=== PATIENT | female | born 1995 | race Caucasian/White ===

== ENCOUNTER 2024-07-09 09:06 | Outpatient (CLI) | payer OTHER, SELFPAY ==
--- NOTE | ~2024-07-09 | CT_ITS ---
EXAMINATION: CT wrist LT wo con DATE: 07/09/2024 09:31 INDICATION: Left wrist pain TECHNIQUE: High resolution computed tomography (CT) of the left wrist was performed without intraveno us contrast. Additional sagittal and coronal reconstructions were performed. Automated exposure contr ol and iterative reconstruction technique were employed. The dose-length product was 84.35 mGy-cm. COMPARISON: None FINDINGS: Bone alignment is normal. No acute fracture. There is tiny ossific density at the radial/volar aspect of the base of the third metacarpal where there appears be an irregular but corticated margin to the bone suggesting either chronic nonunited small avulsion fracture versus enthesopathic ossicle at the third metacarpal insertion of the intermetacarpal ligament and/or flexor carpi radialis tendon. Smal l sclerotic bone island at the triquetrum. Joint spaces appear relatively preserved throughout. Soft tissues appear unremarkable. IMPRESSION: 1. Tiny ossification suggesting either chronic avulsion fracture fragment or enthesopathic ossificati on at the volar third metacarpal base insertion of the flexor carpi radialis tendon and/or intermetac arpal ligament. No acute osseous abnormality. Reviewed, dictated and finalized at location B. [facility] IMPRESSION: 1. Tiny ossification suggesting either chronic avulsion fracture fragment or en thesopathic ossification at the volar third metacarpal base insertion of the fl exor carpi radialis tendon and/or intermetacarpal ligament. No acute osseous ab normality.
== END 2024-07-09 09:07 | disposition home or self-care (01) ==
LOC: MICIMG 09:10
DX: M25.532 Pain in left wrist (principal)
CPT/HCPCS: 73200